=== PATIENT | female | born 1955 | race Caucasian/White ===

== ENCOUNTER 2025-04-29 14:46 | Outpatient (CLI) | payer MEDICARE ==
[2025-04-29 16:00] LABS: Hematocrit 41.5 % (34.9-44.5); Hemoglobin 13.3 g/dL (12.0-15.5); Mean Corpuscular Hemoglobin 29.3 pg (27.0-33.0); Mean Corpuscular Volume 91.4 fL (81.6-98.3); Platelet Count 183 10x3/uL (150-450); Red Blood Cell (RBC) Count 4.54 10x6/uL (3.90-5.03); White Blood Cell (WBC) Count 5.61 10x3/uL (3.5-10.5)
[2025-04-29 16:33] LABS: Anion Gap 10 mmol/L (10-20); BUN (Urea Nitrogen) 19 mg/dL (9.8-20.1); Calc. Creatinine Clearance 0 mL/min (70-130); Calcium 9.9 mg/dL (7.8-10.44); Carbon Dioxide 27 mmol/L (23-31); Chloride 109 mmol/L (98-107); Glucose 90 mg/dL (80-115); Potassium 4.2 mmol/L (3.5-5.1); Sodium 142 mmol/L (136-145)
== END 2025-04-29 14:47 | disposition home or self-care (01) ==
LOC: CSHLAB 14:46
PROVIDERS: ATTEND Surgery
DX: Z01.812 Encounter for preprocedural laboratory examination (principal); K40.90 Unilateral inguinal hernia, without obstruction or gangrene, not specified as recurrent
CPT/HCPCS: 80048; 85027

== ENCOUNTER 2025-04-30 06:49 | Day surgery (SDC) | payer MEDICARE ==
[2025-04-29 15:12] VITALS: BMI 18.6
[2025-04-30] MEDS ORDERED: Bupivacaine HCl 0.5%/Epinephrine 1:200,000/PF 30 ml Vial ONE (09:12)
[2025-04-30] MEDS ORDERED: SUGAMMADEX SODIUM 200 MG/2 ML VIAL ONE (09:14)
[2025-04-30] MEDS ORDERED: Rocuronium Bromide 10 MG/ML (10ML VIAL) ONE (09:14)
[2025-04-30] MEDS ORDERED: Ondansetron PF 4 MG/2 ML Vial ONE (09:14)
[2025-04-30] MEDS ORDERED: PROPOFOL 20 ML ONE (09:14)
[2025-04-30] MEDS ORDERED: Ketorolac Tromethamine 30 MG (1 mL) VIAL ONE (09:15)
[2025-04-30] MEDS ORDERED: CEFAZOLIN 2 GM VIAL ONE (09:54)
[2025-04-30] MEDS ORDERED: PHENYLEPHRINE-NS 100 MCG/ML 10 ML SYRINGE ONE (10:10)
[2025-04-30] MEDS ORDERED: oxyCODONE 5 MG TAB ONE (11:56)
== END 2025-04-30 12:25 | disposition home or self-care (01) ==
LOC: CSHSDC 06:49
PROVIDERS: ATTEND Surgery
PROC: 0YU54JZ Supplement Right Inguinal Region with Synthetic Substitute, Percutaneous Endoscopic Approach (ICD-10-PCS; principal; 2025-04-30)
DX: K40.90 Unilateral inguinal hernia, without obstruction or gangrene, not specified as recurrent (principal); I10 Essential (primary) hypertension; Z88.5 Allergy status to narcotic agent; Z88.2 Allergy status to sulfonamides
CPT/HCPCS: 49650; J1100; J1885; J2405; J2704; J3010; S2900